=== PATIENT | male | born 1960 | race Caucasian/White ===

== ENCOUNTER 2020-03-31 13:39 | Emergency (ER) | payer BC, SELFPAY ==
[2020-03-31 13:39] VITALS: BP 136/93; PULSE 74; RESP 17; TEMP 36.9; O2SAT 96; BMI 27.8
--- NOTE | 2020-03-31 13:50 | ED.VIS.UPPEX ---
History of Present Illness Chief Complaint: Laceration Informant: Patient Occurred: Hours - 1 Mechanism/Context: Incised - accidentally on food slicer/mandolin Context: Sudden Onset Timing: Continuous Quality of Pain: - - sore Location: left thumb Current Severity: Mild Maximum Severity: Mild Worsened by: palpation Relieved by: leaving alone Associated Symptoms: Negative for: Parasthesia, Weakness, Loss of Funtion Narrative: Accidental laceration. [id number]. Cut his left thumb. It bled a lot at the time but it is controlled now. No other injuries. Tetanus Immunization: 5-10 years Past Medical History - Allergies and Home Meds Allergies/Adverse Reactions: Allergies bee pollen [Bee Pollen] Allergy (Verified 03/31/20 13:39) Swelling naproxen sodium [From Aleve] Allergy (Verified 03/31/20 13:39) Swelling Primary Care Physician: Say Daugherty MD [Primary Care Provider] - 10-14 Days suture removal Past Medical History: None Surgical History: - - Arthroscopic knee surgery, tonsillectomy Lives: Spouse/ Significant Other Smoking Status: Never smoker Review of Systems General: Denies: Chills, Fever, Sweats Musculoskeletal: Reports: Extremity Pain. Denies: Neck pain Skin: Reports: Wounds. Denies: Abscess Neurological: Denies: Weakness, Parasthesia, Numbness Physical Exam Vital Signs/Narrative: Vital Signs Temp Pulse Resp BP Pulse Ox 03/31/20 13:39 98.4 F 74 17 136/93 H 96 General: Well nourished, Well developed, - - NAD Head: Normocephalic, Atraumatic Extremeties: Tender left thumb at laceration, see below. Full range of motion, no loss of function or deformity. No bony tenderness. No nail injury/involvement. Skin: Normal color, Trauma - 3 cm longitudinal full-thickness linear clean-appearing laceration along the length of the left thumb, radial aspect, more volar, crossing the IP joint. No gross contamination. Bleeding well controlled. Neurological: Alert, Oriented x3, Normal Gait Psychological: Normal affect, Normal Mood Diagnostic/Tx/Re-eval - Medical Decision Making Laceration was repaired, see the procedure note below. No complications. No visible tendons, bone, or other important structures. Laceration not contaminated, no antibiotics indicated, and his tetanus is up-to-date. Follow-up in 10 to 14 days for removal and reevaluation. Procedures - Lacerations left thumb Length: 3 cm Depth: Sub Q Shape: Linear Prep: Sterile Conditions, Chlorhexadine Laceration repair: Irrigated, Lidocaine, Local - 4cc, in addition to LET topically Irrigated (ml): 80 Number of Sutures/[place]: 7 Suture Information: Ethilon, Simple, 5-0 ED Disposition - Plan for ED Patient: Disposition: Home or Assisted Living Diagnosis: Laceration of left thumb Instructions: ED Laceration Hand Referrals: Say Daugherty MD [Primary Care Provider] - 10-14 Days suture removal
[2020-03-31] MEDS: Lidocaine/Epi/Tetracaine 50 ML 1 APPLIC TOPICAL (13:54)
== END 2020-03-31 15:01 | disposition home or self-care (01) ==
PROVIDERS: Emergency Provider Emergency Medicine; PCP Family Medicine
DX: S61.012A Laceration without foreign body of left thumb without damage to nail, initial encounter (principal); W45.8XXA Other foreign body or object entering through skin, initial encounter; Y93.9 Activity, unspecified; Y92.9 Unspecified place or not applicable; Y99.9 Unspecified external cause status
CPT/HCPCS: 12002; 99283

== ENCOUNTER 2020-04-30 09:19 | Emergency (ER) | payer BC, SELFPAY ==
[2020-04-30 09:22] VITALS: BP 163/108; PULSE 85; RESP 16; TEMP 36.3; O2SAT 99; BMI 27.8
--- NOTE | 2020-04-30 09:34 | ED.VISSUMM ---
- ER Visit Summary Date of Service: 04/30/20 Chief Complaint: Right foot redness History of Present Illness: The patient is a 59 M presenting with redness to his right foot. He noticed this yesterday. 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 He complains of mild soreness to the right foot. He noticed increasing redness today. Denies calf pain or swelling. Denies other complaints. Physical Examination: Vitals are stable. Patient is afebrile. Alert no acute distress. HEENT exam is unremarkable. Neck is supple. Lungs are clear and equal bilaterally. Heart is regular rate and rhythm. Extremities right lateral foot erythema. Normal pulses. No calf tenderness. Skin is warm and dry. No focal neurologic deficit. Remainder of exam is unremarkable. Emergency Department Course and Treatment: Right foot x-ray shows soft tissue swelling. Patient was given Keflex. He is advised to watch this for worsening infection. Advised to follow up with primary care physician. Advised return to ED for worsening complaints. Disposition: Discharge home Impression: Right foot cellulitis This note was generated with [employer] dictation software. It may contain incorrect words, spelling, and punctuation that were not noted in review of the chart prior to signing ED Disposition - Plan for ED Patient: Instructions: ED Cellulitis Prescriptions: Cephalexin [Keflex] 500 mg PO Q6 #40 cap Prescription Printed Referrals: Say Daugherty MD [Primary Care Provider] -
--- NOTE | 2020-04-30 09:35 | RAD_ITS ---
STUDY: X-RAY - RIGHT FOOT CLINICAL: Male, 59 years old. Swelling and redness on top of right foot this morning, pain to touch, -- no known injury TECHNIQUE: 4 view(s) of the foot. COMPARISON: None. FINDINGS: Normal talus, calcaneus, and tarsal bones. Normal visualized subtalar, talonavicular, calcaneocuboid, tarsal and tarsometatarsal articulations. Normal metatarsi. Normal metatarsophalangeal joint of the great toe. Normal tibial and fibular sesamoid bones. Normal interphalangeal joint of the great toe. Normal phalanges of the great toe. Normal second through fifth metatarsophalangeal joints. Normal interphalangeal joints and phalanges of the lesser toes. Soft tissue swelling. RAD/Foot min 3 Views IMPRESSION: Soft tissue swelling. Electronically Signed: Donnie Cramer, at 10:01 EDT , Service support ,
--- NOTE | 2020-04-30 10:17 | ED.DEP ---
ED Disposition - Plan for ED Patient: Instructions: ED Cellulitis Prescriptions: Cephalexin [Keflex] 500 mg PO Q6 #40 cap Prescription Printed Referrals: Say Daugherty MD [Primary Care Provider] -
[2020-04-30] MEDS: Cephalexin 250 MG Capsule 500 MG PO (10:22)
== END 2020-04-30 10:23 | disposition home or self-care (01) ==
LOC: ED 10:01
PROVIDERS: Emergency Provider Emergency Medicine; PCP Family Medicine
DX: L03.115 Cellulitis of right lower limb (principal)
CPT/HCPCS: 73630; 99283

== ENCOUNTER → 2022-05-16 | Outpatient (CLI) | payer BC, SELFPAY ==
--- NOTE | 2022-05-16 08:03 | CT_ITS ---
STUDY: CT RIGHT LOWER EXTREMITY WITHOUT CONTRAST REASON FOR EXAM: Right knee pain, surgical planning. TECHNIQUE: Transaxial CT imaging of the lower extremity was performed. Coronal and sagittal images were reformatted. Individualized dose optimization techniques were used for this CT. COMPARISON: None. FINDINGS: Knee: There is joint space loss of the medial femorotibial compartment (coronal reconstruction 30). There is joint space narrowing of the mesial aspect of the lateral femorotibial compartment (coronal reconstruction 33). There is joint space narrowing of the lateral aspect of the patellofemoral compartment (axial image 278). There is a small joint effusion. There is mild vascular calcification. Hip: There is preservation of joint space of the right hip. Ankle: Normal tibiotalar, posterior subtalar, talonavicular and calcaneocuboid articulations. There is a small posterior calcaneal enthesophyte. CT/Extremity Lower without Contra IMPRESSION: Right knee osteoarthritis. Electronically Signed: Pierre Patrick MD at 14:45 EDT ,
== END | disposition home or self-care (01) ==
PROVIDERS: PCP Family Medicine; Referring Provider Specialist; Visit Provider Specialist
DX: M21.161 Varus deformity, not elsewhere classified, right knee (principal)
CPT/HCPCS: 73700

== ENCOUNTER → 2022-05-21 | Outpatient (CLI) | payer BC, SELFPAY ==
--- NOTE | 2022-05-21 09:34 | EKG12_ITS ---
Test Reason : PREOP Blood Pressure : / mmHG Vent. Rate : 057 BPM Atrial Rate : 057 BPM P-R Int : 166 ms QRS Dur : 086 ms QT Int : 418 ms P-R-T Axes : 031 054 033 degrees QTc Int : 406 ms Sinus bradycardia Otherwise normal ECG Confirmed by KAY LAU, HAYDEN ([id number]), news videotape editor ALO DEL ANGEL ([id number]) on 05/22/2022 10:20:39 AM Referred By: NETTIE Confirmed By:HAYDEN VILLANUEVA MD
[2022-05-21 11:20] LABS: Absolute Lymphocyte Count 1.74 X10^3/uL (0.83-4.51); Absolute Neutrophil Count 3.2 X10^3/uL (2.0-7.7); Basophil# 0.07 X10^3/uL; Basophil% 1.2 % (0-1); Eosinophil# 0.05 X10^3/uL; Eosinophils% 0.9 % (0-5); Hematocrit 42.3 % (40-54); Hemoglobin 14.1 g/dL (13.0-16.5); Lymphocyte # 1.74 X10^3/ul (0.83-4.51); Mean Corp Hgb Conc 33.3 g/dL (32-36); Mean Corpuscular Hgb 32.3 pg (27.0-32.0); Mean Corpuscular Volume 96.8 fL (80-94); Mean Platelet Vol. 11.3 fl (6.2-12.0); Monocyte# 0.51 X10^3/uL; Monocyte% 9.1 % (0-10); NRBC Flagged by Analyzer 0 % (0-5); Neutrophil # 3.21 X10^3/uL (2.7-7.7); Neutrophil % 57.3 % (47-70); Platelet Count 239 K/mm3 (150-450); RBC Distribution Width CV 12.4 % (11.6-14.6); RBC Distribution Width SD 44.8 fl (35.1-43.9); Red Blood Count 4.37 M/mm3 (4.6-6.2); White Blood Count 5.6 K/mm3 (4.4-11.0)
[2022-05-21 11:51] LABS: Albumin, Serum 3.4 g/dL (3.2-5.0); Anion Gap 5 (5-15); BUN 14 mg/dL (7-18); BUN/Creat Ratio 14.2 RATIO (10-20); Calcium,Total 9.1 mg/dL (8.5-10.1); Chloride 106 mmol/L (98-107); Creatinine, Serum 0.99 mg/dL (0.70-1.30); EST Glomerular Filtration Rate 81 mL/min (>60); Est Glom Filt Rate - Afr Amer 98 mL/min (>60); Glucose 91 mg/dL (74-106); Sodium Level 141 mmol/L (136-145)
== END | disposition home or self-care (01) ==
PROVIDERS: PCP Family Medicine; Visit Provider Physician Assistant Surgical
DX: Z01.818 Encounter for other preprocedural examination (principal); Z01.810 Encounter for preprocedural cardiovascular examination
CPT/HCPCS: 36415; 80048; 82040; 85025; 93005